=== PATIENT | male | born 1995 | race Caucasian/White ===

== ENCOUNTER 2017-03-04 13:47 | Inpatient (IN) | payer BC ==
[2017-03-04 14:37] LABS: Hematocrit 44 % (42-52); Hemoglobin 15.2 g/dl (14.0-18.0); Mean Corpuscular HGB Conc 35 g/dl (31-36); Mean Corpuscular Hemoglobin 31 pg (27-31); Mean Corpuscular Volume 88 fL (80-94); Mean Platelet Volume 9 um3 (7.4-10.4); Red Blood Count 4.98 10^6/ul (4.0-5.4); Red Cell Distribution Width 13 % (10.5-15); White Blood Count 5.5 10^3/ul (3.5-10.8)
[2017-03-04 14:51] LABS: ALT 13 U/L (7-52); AST 18 U/L (13-39); Albumin 4.9 g/dL (3.2-5.2); Alkaline Phosphatase 59 U/L (34-104); Anion Gap 9 mmol/L (2-11); Blood Urea Nitrogen 15 mg/dL (6-24); CO2 Carbon Dioxide 25 mmol/L (22-32); Calcium 9.6 mg/dL (8.6-10.3); Chloride 104 mmol/L (101-111); EGFR African American 123.8 (>60); EGFR Non-African American 96.3 (>60); Globulin 2.4 g/dL (2-4); Glucose 77 mg/dL (70-100); Sodium 138 mmol/L (133-145); Total Protein 7.3 g/dL (6.4-8.9)
[2017-03-04 15:09] LABS: Acetaminophen < 15 mcg/mL; Alcohol < 10 mg/dL (<10); Salicylate < 2.50 mg/dL (<30)
[2017-03-04 15:25] LABS: TSH (Thyroid Stimulating Horm) 1.76 mcIU/mL (0.34-5.60)
[2017-03-04 17:17] LABS: Benzodiazepine Urine Screen None Detected (None Detect)
--- NOTE | 2017-03-04 20:51 | ED ---
Edy Monroe Nilda, scribed for Prem Harper MD on 03/04/17 at 1412 . Psychiatric Complaint - HPI Summary HPI Summary: This patient is a 21 year old M BIBA to [facility] with a chief complaint of SI with a plan since last night. Patient had counseling today and counsellor recommended patient come to ED. Symptoms aggravated and alleviated by nothing. Patient reports insomnia and loss of appetite. PMHx of mental health issues ( anxiety and depression) for 6 years, uncontrolled. Patient has had SI before but never with a plan. - History Of Current Complaint Chief Complaint: EDMentalHealth Time Seen by Provider: 03/04/17 13:59 Hx Obtained From: Patient Onset/Duration: Sudden Onset, Gradual Onset, Still Present Character: Depressed, Anxious Aggravating Factor(s): Nothing Alleviating Factor(s): Nothing Associated Signs And Symptoms: Positive: Sleep Disturbance, Appetite Change Has Suicidal: Reports: Thoughts, With A Plan - Allergies/Home Medications Allergies/Adverse Reactions: Allergies Allergy/AdvReac Type Severity Reaction Status Date / Time No Known Allergies Allergy Verified 03/04/17 14:30 PMH/Surg Hx/FS Hx/Imm Hx Sensory History: Denies: Hx Legally Blind EENT History: Denies: Hx Deafness Psychiatric History: Reports: Hx Anxiety, Hx Depression Infectious Disease History: No Infectious Disease History: Denies: Traveled Outside the [place] in Last 30 Days - Family History Known Family History: Negative: Hypertension, Diabetes - Social History Alcohol Use: None Substance Use Type: Reports: None Smoking Status (MU): Never Smoked Tobacco Review of Systems Positive: Other - loss of appetite Positive: Anxious, Depressed, Other - SI with plan, insomnia All Other Systems Reviewed And Are Negative: Yes Physical Exam Triage Information Reviewed: Yes Vital Signs On Initial Exam: Initial Vitals Temp Pulse Resp BP Pulse Ox 98.5 F 72 18 126/72 99 03/04/17 13:50 03/04/17 13:50 03/04/17 13:50 03/04/17 13:50 03/04/17 13:50 Vital Signs Reviewed: Yes Appearance: Positive: Well-Appearing, No Pain Distress Skin: Positive: Warm, Skin Color Reflects Adequate Perfusion, Dry Head/Face: Positive: Normal Head/Face Inspection Eyes: Positive: Normal ENT: Positive: Normal ENT inspection Neck: Positive: Supple, Nontender Respiratory/Lung Sounds: Positive: Clear to Auscultation, Breath Sounds Present Cardiovascular: Positive: RRR Abdomen Description: Positive: Nontender, Soft Bowel Sounds: Positive: Present Musculoskeletal: Positive: Normal Neurological: Positive: Normal Psychiatric: Positive: Normal, Affect/Mood Appropriate - [place] Coma Scale Coma Scale Total: 15 Diagnostics - Vital Signs Vital Signs Temp Pulse Resp BP Pulse Ox 03/04/17 13:50 98.5 F 72 18 126/72 99 - Laboratory Lab Results: Lab Results 03/04/17 03/04/17 03/04/17 Range/Units 14:20 14:20 16:50 WBC 5.5 (3.5-10.8) 10^3/ul RBC 4.98 (4.0-5.4) 10^6/ul Hgb 15.2 (14.0-18.0) g/dl Hct 44 (42-52) % MCV 88 (80-94) fL MCH 31 (27-31) pg MCHC 35 (31-36) g/dl RDW 13 (10.5-15) % Plt Count 176 (150-450) 10^3/ul MPV 9 (7.4-10.4) um3 Neut % (Auto) 53.9 (38-83) % Lymph % (Auto) 36.9 (25-47) % [place] % (Auto) 7.3 (1-9) % Eos % (Auto) 1.0 (0-6) % Baso % (Auto) 0.9 (0-2) % Absolute Neuts (auto) 3.0 (1.5-7.7) 10^3/ul Absolute Lymphs (auto) 2.0 (1.0-4.8) 10^3/ul Absolute Monos (auto) 0.4 (0-0.8) 10^3/ul Absolute Eos (auto) 0.1 (0-0.6) 10^3/ul Absolute Basos (auto) 0.1 (0-0.2) 10^3/ul Absolute Nucleated RBC 0.01 10^3/ul Nucleated RBC % 0.1 Sodium 138 (133-145) mmol/L Potassium 4.0 (3.5-5.0) mmol/L Chloride 104 (101-111) mmol/L Carbon Dioxide 25 (22-32) mmol/L Anion Gap 9 (2-11) mmol/L BUN 15 (6-24) mg/dL Creatinine 1.00 (0.67-1.17) mg/dL Est GFR ( Amer) 123.8 (>60) Est GFR (Non-Af Amer) 96.3 (>60) BUN/Creatinine Ratio 15.0 (8-20) Glucose 77 (70-100) mg/dL Calcium 9.6 (8.6-10.3) mg/dL Total Bilirubin 1.20 H (0.2-1.0) mg/dL AST 18 (13-39) U/L ALT 13 (7-52) U/L Alkaline Phosphatase 59 (34-104) U/L Total Protein 7.3 (6.4-8.9) g/dL Albumin 4.9 (3.2-5.2) g/dL Globulin 2.4 (2-4) g/dL Albumin/Globulin Ratio 2.0 (1-3) TSH 1.76 (0.34-5.60) mcIU/mL Salicylates < 2.50 (<30) mg/dL Urine Opiates Screen None detected (None Detect) Acetaminophen < 15 mcg/mL Ur Barbiturates Screen None detected (None Detect) Ur Phencyclidine Scrn None detected (None Detect) Ur Amphetamines Screen None detected (None Detect) U Benzodiazepines Scrn None detected (None Detect) Urine Cocaine Screen None detected (None Detect) U Cannabinoids Screen None detected (None Detect) Serum Alcohol < 10 (<10) mg/dL Result Diagrams: 03/04/17 14:20 03/04/17 14:20 Lab Statement: Any lab studies that have been ordered have been reviewed, and results considered in the medical decision making process. Course/Dx - Course Course Of Treatment: Mr. Melvin presented with SI that he has had for a long time. Last night he began to formulate a plan and that has scared him. He was medically cleared and is awaiting a MHE. He endorses anhedonia, loss of appetite and insomnia. - Differential Dx/Clinical Impression Provider Diagnosis: Depression with suicidal ideation Discharge - Discharge Plan Condition: Stable Disposition: OTHER Discharge Disposition Comment: s/o pending shift change Referrals: No Primary Care Phys,NOPCP [Primary Care Provider] - The documentation as recorded by the Edy moreau Nilda accurately reflects the service I personally performed and the decisions made by me, Prem Harper MD.
--- NOTE | 2017-03-05 11:58 | HP ---
H&P (Free Text) History and Physical: HPI: ---- Patient is a 21yo male with PPHx significant for anxiety and depression which has gone untreated until now. Patient presents to the [facility] ED, [place], after reporting worsening anxiety and depression, now associated with SI and plan. Patient reports he'sn been dealing with depression and anxiety since . He has hx of suicide attempt which occurred in 08/2011. Patient reports stressor was bullying. He tried to hang himself. He was not hospitalized. Patient currently is a student at [employer] and is working 3 jobs to maintain his finances. Patient reports he is having trouble "adjusting to my new lifestyle". 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 Patient reports this job is distracting as there are issues daily with students. Patient reports his other 2 jobs are physically draining. Patient though reports his primary trigger which drops his mood is "lonliness". Patient reports he is the youngest of 2 children. He reports his older brother is mentally handicapped and requires most of his mother's attention. Patient reports he has felt "neglected" by his mom all his life. Patient reports poor sleep at 3-5 hrs per night recently. He reports being up with worries about school, finances, and "how I present myself". Patient reports poor energy, recent increase in apathy, decreased motivation, decreased interest in his classes, and patient endorses anhedonia. Patient reports he has had chronic fleeting SI since . He reports his recent planning prompted his presentation. Patient denies hx of alcohol abuse. Patient denies hx of use of illicit substances.Patient reports no hx of childhood physical abuse or sexual abuse. Patient reports hx of bullying from middle school through . Patient denies NMs. He reports no signs of psychosis nor were any elicited on exam. Past Psych Hx: Inpt - This is patient's first psychiatric hospitalization. Outpt - Patient reports only recent hx of counseling, weekly, on the [employer] campus Psychotropic med hx - Patient is psychotropic med naive. Trauma Hx: Patient reports no hx of childhood physical abuse or sexual abuse. Patient reports hx of bullying from middle school through . Suicide attempt Hx / SIB Hx: Patient reports hx of 1 suicide attempt which occurred in 08/2011. Patient reports stressor was bullying. He tried to hang himself. He was not hospitalized. Substance Hx: Patient denies hx of alcohol abuse. Patient denies hx of use of illicit substances. Medical Hx: None Allergies: --------- NKDA Social Hx: --------- -Born and raised in [place] -Raised by mom and step-dad, close with both -1 brother who is disabled, close -Patient is close with his bio-dad who lives in [place] -Patient is currently a sophomore in college -Lives in the dorms while in school, but at home with mom and step-dad when out -Patient is single, never , no children -Patient denies hx of legal problems -Patient reports he does have access to firearms as his step-dad has guns in his closet, unlocked Family Hx: -Patient reports hx of depression on maternal side of family. -Patient denies JACQUELYN issues in his family members. -Patient denies hx of attempted or completed suicide in his family. Home Medications: Home Medications Medication Instructions Recorded Confirmed Type NK [No Home Medications Reported] 03/04/17 03/04/17 History VITALS: Vital Signs (72 hours) 03/04/17 03/04/17 03/04/17 13:50 22:41 22:56 Temperature 98.5 F 98.1 F Pulse Rate 72 61 Respiratory 18 18 18 Rate Blood Pressure 126/72 134/85 (mmHg) O2 Sat by Pulse 99 99 Oximetry 03/05/17 03/05/17 08:04 11:18 Temperature 98.7 F Pulse Rate 71 Respiratory 16 16 Rate Blood Pressure 118/72 (mmHg) O2 Sat by Pulse 98 Oximetry LABS: ------- Laboratory Tests 03/04/17 03/04/17 03/04/17 14:20 14:20 16:50 WBC 5.5 RBC 4.98 Hgb 15.2 Hct 44 MCV 88 MCH 31 MCHC 35 RDW 13 Plt Count 176 MPV 9 Neut % (Auto) 53.9 Lymph % (Auto) 36.9 [place] % (Auto) 7.3 Eos % (Auto) 1.0 Baso % (Auto) 0.9 Absolute Neuts (auto) 3.0 Absolute Lymphs (auto) 2.0 Absolute Monos (auto) 0.4 Absolute Eos (auto) 0.1 Absolute Basos (auto) 0.1 Absolute Nucleated RBC 0.01 Nucleated RBC % 0.1 Sodium 138 Potassium 4.0 Chloride 104 Carbon Dioxide 25 Anion Gap 9 BUN 15 Creatinine 1.00 Est GFR ( Amer) 123.8 Est GFR (Non-Af Amer) 96.3 BUN/Creatinine Ratio 15.0 Glucose 77 Calcium 9.6 Total Bilirubin 1.20 H AST 18 ALT 13 Alkaline Phosphatase 59 Total Protein 7.3 Albumin 4.9 Globulin 2.4 Albumin/Globulin Ratio 2.0 TSH 1.76 Salicylates < 2.50 Urine Opiates Screen None detected Acetaminophen < 15 Ur Barbiturates Screen None detected Ur Phencyclidine Scrn None detected Ur Amphetamines Screen None detected U Benzodiazepines Scrn None detected Urine Cocaine Screen None detected U Cannabinoids Screen None detected Serum Alcohol < 10 PHYSICAL EXAM: GEN - thin build male, looks stated age, in NAD HEENT - NC/AT, EOEMI, no lesions or discharge noted, conjunctivae clear NECK - supple, no JVD, no LAD CARDIAC - S1/S2, no discernable murmurs ABD - (+) BS x 4 quad, non-tender EXT - no edema, no lesions MUSCULOSKEL - 5/5 muscle strength in all extremities SKIN - intact, no lesions NEURO - CN 2-12, steady gait MSE: ------ Appearance - thin build male, looks stated age, fair hygeine, in NAD Behavior - calm, cooperative, engaged Speech - spontaneous, RVR, prosody wnl Eye Contact - good Mood - "depressed" Affect - depressed TP - linear TC - consumed with anxieties Perception - no signs of psychosis noted Orientation - A&Ox4 Insight - fair Judgment - poor to fair Impulse control - fair Fund of knowledge - wnl SI / HI - SI w/plan on admission, currently denies both ASSESSMENT: 1. MDD, R, S w/o PFs PLAN: ------ 1. Continue admission to [facility] for safety and symptom mx. 2. Patient gives informed consent to start Effexor XR 75mg po qam for anxiety/ mood 3. Patient gives informed consent to start Trazodone 50mg po qhs for insomnia. 4. Patient gives informed consent to start Ativan 1mg po q6hrs PRN breakthrough anxiety. 5. Patient to participate in milieu activities and groups.
--- NOTE | 2017-03-05 16:42 | PN ---
MHU: Group Therapy Note - Service Type Service Type: [id number] Group Psychotherapy - Medication Education Group: Patient was attentive in group, and remained in good behavioral control. Although responsive to direct prompts to respond to questions, patient did not engage in spontaneous conversation.
[2017-03-05] MEDS: traZODone TAB* 50 MG TAB PO SCH (20:11)
[2017-03-06] MEDS: Venlafaxine EXT RELEASE CAP* 75 MG PO SCH (08:42)
[2017-03-06] MEDS ORDERED: Influenza VAC *QUAD* 2017-18* 0.5 ML SYRINGE IM ONE (09:00)
--- NOTE | 2017-03-06 10:26 | PN ---
Subjective - Subjective Service Type: 02143 Hosp care 15 min low complexity Subjective: Patient noted to be visible in the milieu, social with peers and staff, and participating in milieu activities and groups. Patient disclosed his concern about his mood which he reports drops unexpectedly. Patient reports noting triggers including perceived rejection, loneliness, and assuming malice when he does not understand a social cue or communication. Patient educated he must become more mindful of the situation in which these triggers occur. He has to look for evidence of malicious intent before assuming this otherwise he should give people benefit of the doubt. Patient informed due to his hx of perceived abandonment by his mother, patient may have developed a PD with cluster B traits. Handouts on BPD printed and given to patient. Patient reports improved mood and benefit from groups. Patient reports good sleep and appetite. He denies SI/HI and AH/VH. Objective - Appearance Appearance: Well Developed/Nourished, Thin Framed Dysmorphic Features: No Hygiene: Normal Grooming: Fairly Well Kept - Behavior Psychomotor Activities: Normal Exhibits Abnormal Movement: No - Attitude and Relatedness Attitude and Relatedness: Cooperative Eye Contact: Good - Speech Quality: Unpressured Latencies: Normal Quantity: Appropriate - Mood Patient's Decription of Mood: "Okay" - Affect Observed Affect: Depressed Affect Consistent with: Dysphoria - Thought Process Patient's Thought Process: Coherent Thought Content: No Passive Wish, No Suicidal Planning, No Homicidal Ideation, No Paranoid Ideation - Sensorium Experiencing Hallucinations: No, Sensorium is Clear Type of Hallucinations: Visual: No, Auditory: No, Command: No - Level of Consciousness Level of Consciousness: Alert Orientation: Yes Intact, Yes Orientated to Time, Yes Orientated to Place, Yes Orientated to Person - Impulse Control Impulse Control: Intact - Insight and Judgement Insight and Judgement: Fair - Group Participation Particating in Group Activities: Yes - Medication Management Medication Management Adherence: Yes Assessment - Assessment Merits Inpatient Hospitalization: For Immediate Safety, For Stabilization Inpatient DSM-IV Dx: ASSESSMENT: . 1. MDD, R, S w/o PFs. 2. r/o Unspecified PD(cluster B traits) Plan - Plan Treatment Plan: Name: OPAL COUCH Birthdate: 1995 [id number] PLAN: ------ 1. Continue admission to [facility] for safety and symptom mx. 2. Continue Effexor XR 75mg po qam for anxiety/mood 3. Continue Trazodone 50mg po qhs for insomnia. 4. Continue Ativan 1mg po q6hrs PRN breakthrough anxiety. 5. Refer to outpt services. 6. Re-eval on this regimen on Thursday. 7. Patient to participate in milieu activities and groups. Continued Medication Management: Start Medication Medications: Current Medications Lorazepam (Ativan Tab(*)) 1 mg PO Q6H PRN PRN Reason: ANXIETY Trazodone HCl (Desyrel Tab*) 50 mg PO BEDTIME [facility] Last Admin: 03/05/17 20:11 Dose: 50 mg Venlafaxine HCl (Effexor Xr Cap*) 75 mg PO DAILY [facility] Last Admin: 03/06/17 08:42 Dose: 75 mg - Discharge Plan Discharge Plan: Outpatient Follow Up
--- NOTE | 2017-03-06 11:58 | PN ---
MHU: Group Therapy Note - Service Type Service Type: [id number] Group Psychotherapy - Cognitive Behavioral Group Therapy ( CBT):Patient was attentive and participatory in CBT programming this morning, and remained in good behavioral control. Patient expressed positive insights regarding relevant treatment interventions and goals.
[2017-03-06] MEDS: traZODone TAB* 50 MG TAB PO SCH (21:02)
[2017-03-07] MEDS: Venlafaxine EXT RELEASE CAP* 75 MG PO SCH (08:22)
[2017-03-07] MEDS ORDERED: Influenza VAC *QUAD* 2017-18* 0.5 ML SYRINGE IM ONE (09:00)
[2017-03-07] MEDS: traZODone TAB* 50 MG TAB PO SCH (21:15)
[2017-03-08] MEDS: Venlafaxine EXT RELEASE CAP* 75 MG PO SCH (09:18)
[2017-03-08] MEDS: LORazepam TAB(*) 1 MG PO PRN (09:19)
--- NOTE | 2017-03-08 11:13 | PN ---
Subjective - Subjective Service Type: 80721 Hosp care 15 min low complexity Subjective: Opal states that he's feeling good, tolerating the introduction of venlafaxine XR well, and enjoying the milieu setting. He denies SI or HI and states that he should be ready for discharge home sometime this week. He is friendly and polite and, at one point, inquires to this clinician whether I think he has borderline personality disorder. The patient is educated on this diagnosis and advised to bring this question up with his attending, Dr. Arevalo, when that clinician returns after the weekend. He is adherent with group programming and no management issue per staff. Objective - Appearance Appearance: Well Developed/Nourished Dysmorphic Features: No Hygiene: Normal Grooming: Fairly Well Kept - Behavior Psychomotor Activities: Normal Exhibits Abnormal Movement: No - Attitude and Relatedness Attitude and Relatedness: Cooperative Eye Contact: Fair - Speech Quality: Unpressured Latencies: Normal Quantity: Appropriate - Mood Patient's Decription of Mood: "Good" - Affect Observed Affect: Fair Affect Consistent with: Euthymia - Thought Process Patient's Thought Process: Coherent Thought Content: No Passive Wish, No Suicidal Planning, No Homicidal Ideation, No Paranoid Ideation - Sensorium Experiencing Hallucinations: No, Sensorium is Clear Type of Hallucinations: Visual: No, Auditory: No, Command: No - Level of Consciousness Level of Consciousness: Alert Orientation: Yes Intact, Yes Orientated to Time, Yes Orientated to Place, Yes Orientated to Person - Impulse Control Impulse Control: Intact - Insight and Judgement Insight and Judgement: Good - Group Participation Particating in Group Activities: Yes - Medication Management Medication Management Adherence: Yes Assessment - Assessment Merits Inpatient Hospitalization: Consolidate Improvements, Pending Safe DC Plan Inpatient DSM-IV Dx: ASSESSMENT: . 1. MDD, R, S w/o PFs. 2. r/o Unspecified PD(cluster B traits) Clinical Impression: 21 y.o. single, white [employer] student with a history of untreated anxiety and depression arrives voluntarily seeking evaluation and treatment for active suicidal ideations. Plan - Plan Treatment Plan: Name: OPAL COUCH Birthdate: 1995 [id number] Patient is now on venlafaxine XR 75mg PO qam and trazodone 50mg PO qhs, which he claims to be tolerating well. Continue inpatient treatment. Continued Medication Management: Start Medication Medications: Current Medications Lorazepam (Ativan Tab(*)) 1 mg PO Q6H PRN PRN Reason: ANXIETY Last Admin: 03/08/17 09:19 Dose: 1 mg Trazodone HCl (Desyrel Tab*) 50 mg PO BEDTIME [facility] Last Admin: 03/07/17 21:15 Dose: 50 mg Venlafaxine HCl (Effexor Xr Cap*) 75 mg PO DAILY [facility] Last Admin: 03/08/17 09:18 Dose: 75 mg - Discharge Plan Discharge Plan: Inpatient Hospitalization
[2017-03-08] MEDS: traZODone TAB* 50 MG TAB PO SCH (21:06)
[2017-03-09] MEDS: LORazepam TAB(*) 1 MG PO PRN (09:03)
[2017-03-09] MEDS: Venlafaxine EXT RELEASE CAP* 75 MG PO SCH (09:03)
--- NOTE | 2017-03-09 11:55 | PN ---
Subjective - Subjective Service Type: 19807 Hosp care 15 min low complexity Subjective: Patient continue to thoroughly engage his therapy. He reports good benefit from groups and milieu activities. Patient again requests reading materials on his diagnosis of MDD and on the BPD. He reports seeing some of himself in prior reading materials. He reports improved mood. Appetite is wnl. He denies MILLIGAN, CP, Abd pain and denies issues with constipation or problems with urination. Patient reports increased sleep latency and requests increase in Trazodone dose. He also requests, from his reading, a trial on a mood stabilizer as he believes it may help in his abrupt drops in mood and irritability. He is med compliant and denies med s/e's. Patient informed Depakote would be started at low dose BID for mood stabilization. Patient again denies SI /HI and AH/VH. Objective - Appearance Appearance: Well Developed/Nourished, Thin Framed Dysmorphic Features: No Hygiene: Normal Grooming: Fairly Well Kept - Behavior Psychomotor Activities: Normal Exhibits Abnormal Movement: No - Attitude and Relatedness Attitude and Relatedness: Cooperative Eye Contact: Good - Speech Quality: Unpressured Latencies: Normal Quantity: Appropriate - Mood Patient's Decription of Mood: "Fine" - Affect Observed Affect: Fair Affect Consistent with: Euthymia - Thought Process Patient's Thought Process: Coherent Thought Content: No Passive Wish, No Suicidal Planning, No Homicidal Ideation, No Paranoid Ideation - Sensorium Experiencing Hallucinations: No, Sensorium is Clear Type of Hallucinations: Visual: No, Auditory: No, Command: No - Level of Consciousness Level of Consciousness: Alert Orientation: Yes Intact, Yes Orientated to Time, Yes Orientated to Place, Yes Orientated to Person - Impulse Control Impulse Control: Intact - Insight and Judgement Insight and Judgement: Fair - Group Participation Particating in Group Activities: Yes - Medication Management Medication Management Adherence: Yes Assessment - Assessment Merits Inpatient Hospitalization: For Immediate Safety, For Stabilization Inpatient DSM-IV Dx: ASSESSMENT: . 1. MDD, R, S w/o PFs. 2. r/o Unspecified PD(cluster B traits) Plan - Plan Treatment Plan: Name: OPAL COUCH Birthdate: 1995 [id number] PLAN: ------ 1. Continue admission to [facility] for safety and symptom mx. 2. Continue Effexor XR 75mg po qam for anxiety/mood 3. Will increase Trazodone from 50mg to 100mg po qhs for insomnia. 4. Patient gives informed consent to start Depakote 250mg po BID for mood augmentation/stabilization. 5. Continue Ativan 1mg po q6hrs PRN breakthrough anxiety. 6. Refer to outpt services. 7. Re-eval on this regimen on Thursday. 8. Patient to participate in milieu activities and groups. Continued Medication Management: Start Medication Medications: Current Medications Lorazepam (Ativan Tab(*)) 1 mg PO Q6H PRN PRN Reason: ANXIETY Last Admin: 03/09/17 09:03 Dose: 1 mg Trazodone HCl (Desyrel Tab*) 50 mg PO BEDTIME [facility] Last Admin: 03/08/17 21:06 Dose: 50 mg Venlafaxine HCl (Effexor Xr Cap*) 75 mg PO DAILY [facility] Last Admin: 03/09/17 09:03 Dose: 75 mg - Discharge Plan Discharge Plan: Outpatient Follow Up Outpatient Program: [facility]
[2017-03-09] MEDS: traZODone TAB* 50 MG TAB PO SCH (20:20)
[2017-03-09] MEDS: Divalproex ER TAB(*) 250 MG PO SCH (20:20)
[2017-03-10] MEDS: Venlafaxine EXT RELEASE CAP* 75 MG PO SCH (09:11)
[2017-03-10] MEDS: Divalproex ER TAB(*) 250 MG PO SCH ×2 (09:11→20:37)
[2017-03-10] MEDS: LORazepam TAB(*) 1 MG PO PRN (09:12)
--- NOTE | 2017-03-10 10:17 | PN ---
Subjective - Subjective Service Type: 78588 Hosp care 15 min low complexity Subjective: Patient continues to engage in therapy. He is noted to be visible on the milieu , social, pleasant and reports ongoing benefit from groups and milieu activities. Patient reports ongoing improved mood. Sleep and appetite are wnl. He is med compliant and denies med s/e's. He denies MILLIGAN, CP, Abd pain and denies issues with constipation or problems with urination. Patients improved sleep last night. He is full in affect, linear and GD in TP and future oriented in TC. Patient reports feeling ready for discharge. Patient again denies SI/HI and AH/VH. Objective - Appearance Appearance: Well Developed/Nourished, Thin Framed Dysmorphic Features: No Hygiene: Normal Grooming: Well Kept - Behavior Psychomotor Activities: Normal Exhibits Abnormal Movement: No - Attitude and Relatedness Attitude and Relatedness: Cooperative Eye Contact: Good - Speech Quality: Unpressured Latencies: Normal Quantity: Appropriate - Mood Patient's Decription of Mood: "Good" - Affect Observed Affect: Good Affect Consistent with: Euthymia - Thought Process Patient's Thought Process: Coherent Thought Content: No Passive Wish, No Suicidal Planning, No Homicidal Ideation, No Paranoid Ideation - Sensorium Experiencing Hallucinations: No, Sensorium is Clear Type of Hallucinations: Visual: No, Auditory: No, Command: No - Level of Consciousness Level of Consciousness: Alert Orientation: Yes Intact, Yes Orientated to Time, Yes Orientated to Place, Yes Orientated to Person - Impulse Control Impulse Control: Intact - Insight and Judgement Insight and Judgement: Fair - Group Participation Particating in Group Activities: Yes - Medication Management Medication Management Adherence: Yes Assessment - Assessment Merits Inpatient Hospitalization: For Immediate Safety, For Stabilization Inpatient DSM-IV Dx: ASSESSMENT: . 1. MDD, R, S w/o PFs. 2. r/o Unspecified PD(cluster B traits) Plan - Plan Treatment Plan: Name: OPAL COUCH Birthdate: 1995 [id number] PLAN: ------ 1. Continue admission to [facility] for safety and symptom mx. 2. Continue Effexor XR 75mg po qam for anxiety/mood 3. Will increase Trazodone from 50mg to 100mg po qhs for insomnia. 4. Continue Ativan 1mg po q6hrs PRN breakthrough anxiety. 5. Refer to outpt services. 6. Re-eval on this regimen on Thursday. 7. Patient to participate in milieu activities and groups. Continued Medication Management: Start Medication Medications: Current Medications Divalproex Sodium (Depakote Er Tab(*)) 250 mg PO BID [facility] Last Admin: 03/10/17 09:11 Dose: 250 mg Lorazepam (Ativan Tab(*)) 1 mg PO Q6H PRN PRN Reason: ANXIETY Last Admin: 03/10/17 09:12 Dose: 1 mg Trazodone HCl (Desyrel Tab*) 100 mg PO BEDTIME [facility] Last Admin: 03/09/17 20:20 Dose: 100 mg Venlafaxine HCl (Effexor Xr Cap*) 75 mg PO DAILY [facility] Last Admin: 03/10/17 09:11 Dose: 75 mg - Discharge Plan Discharge Plan: Outpatient Follow Up Outpatient Program: [facility]
[2017-03-10] MEDS: traZODone TAB* 50 MG TAB PO SCH (20:37)
[2017-03-11 07:56] VITALS: BP 114/69
[2017-03-11] MEDS: Divalproex ER TAB(*) 250 MG PO SCH (09:23)
[2017-03-11] MEDS: Venlafaxine EXT RELEASE CAP* 75 MG PO SCH (09:23)
[2017-03-11] MEDS: LORazepam TAB(*) 1 MG PO PRN (09:24)
--- NOTE | 2017-03-11 11:32 | DS ---
Subjective - Subjective Service Types: 49144 Hosp DC Day Mgmt simple under 30 min Subjective: Patient noted to be visible most of the day in the milieu, pleasant, social with peers and attending groups. Patient reports ongoing benefit from his admission. He reports interest in ongoing psychotherapy. Patient has been med compliant. Patient denies med s/e's. Patient reports feeling ready for discharge. Patient is A&Ox4, linear and GD in TP, and future oriented in TC. Patient reports interest in getting back to work and back to his classes. Patient again denies SI/HI and AH/VH. Patient is psychiatrically stable. Discharge plan has been discussed and patient is amenable and acknowledges understanding. Patient instructed to call the crisis hotline, 911, or self present to a local ED if SI recurs. Patient was amenable and acknowledged understanding of family and community supports. Patient will be discharged home today. Objective - Appearance Appearance: Well Developed/Nourished Dysmorphic Features: No Hygiene: Normal Grooming: Well Kept - Behavior Psychomotor Activities: Normal Exhibits Abnormal Movement: No - Attitude and Relatedness Attitude and Relatedness: Cooperative Eye Contact: Good - Speech Quality: Unpressured Latencies: Normal Quantity: Appropriate - Mood Patient's Decription of Mood: "Good" - Affect Observed Affect: Good Affect Consistent with: Euthymia - Thought Process Patient's Thought Process: Coherent Thought Content: No Passive Wish, No Suicidal Planning, No Homicidal Ideation, No Paranoid Ideation - Sensorium Experiencing Hallucinations: No, Sensorium is Clear Type of Hallucinations: Visual: No, Auditory: No, Command: No - Level of Consciousness Level of Consciousness: Alert Orientation: Yes Intact, Yes Orientated to Time, Yes Orientated to Place, Yes Orientated to Person - Impulse Control Impulse Control: Intact - Insight and Judgement Insight and Judgement: Good - Group Participation Particating in Group Activities: Yes - Medication Management Medication Management Adherence: Yes Treatment Course & Assessment Clinical Course & Impression: HOSPITAL COURSE: Patient is a 21yo male with PPHx significant for anxiety and depression which has gone untreated until now. Patient presented to the [facility] ED, BIBA, after reporting worsening anxiety and depression, now associated with SI and plan. Patient reports he'sn been dealing with depression and anxiety since HS. He has hx of suicide attempt which occurred in 08/2011. Patient reports stressor was bullying. He tried to hang himself. He was not hospitalized. Patient currently is a student at [employer] and is working 3 jobs to maintain his finances. Patient reports he is having trouble "adjusting to my new lifestyle". 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 Patient reports this job is distracting as there are issues daily with students. Patient reports his other 2 jobs are physically draining. Patient though reports his primary trigger which drops his mood is "lonliness". Patient reports he is the youngest of 2 children. He reports his older brother is mentally handicapped and requires most of his mother's attention. Patient reports he has felt "neglected" by his mom all his life. Patient reports poor sleep at 3-5 hrs per night recently. He reports being up with worries about school, finances, and "how I present myself". Patient reports poor energy, recent increase in apathy, decreased motivation, decreased interest in his classes, and patient endorses anhedonia. Patient reports he has had chronic fleeting SI since . He reports his recent planning prompted his presentation. Patient denies hx of alcohol abuse. Patient denies hx of use of illicit substances.Patient reports no hx of childhood physical abuse or sexual abuse. Patient reports hx of bullying from middle school through . Patient denies NMs. He reported no signs of psychosis nor were any elicited on admission exam. Patient gave informed consent to start Effexor XR 75mg po qam for anxiety/mood Patient gave informed consent to start Trazodone 50mg po qhs for insomnia. Patient gave informed consent to start Ativan 1mg po q6hrs PRN breakthrough anxiety. On admission day #1, patient noted to be visible in the milieu, social with peers and staff, and participating in milieu activities and groups. Patient disclosed his concern about his mood which he reports drops unexpectedly. Patient repored noting triggers including perceived rejection, loneliness, and assuming malice when he does not understand a social cue or communication. Patient educated he must become more mindful of the situation in which these triggers occur. He has to look for evidence of malicious intent before assuming this otherwise he should give people benefit of the doubt. Patient informed due to his hx of perceived abandonment by his mother, patient may have developed a PD with cluster B traits. Handouts on BPD printed and given to patient. Patient reports improved mood and benefit from groups. Patient reports good sleep and appetite. He denies SI/HI and AH/VH. By admission day #4, patient continue to thoroughly engage his therapy. He reported good benefit from groups and milieu activities. Patient again requested reading materials on his diagnosis of MDD and on the BPD. He reports seeing some of himself in prior reading materials. He reports improved mood. Appetite is wnl. He denied MILLIGAN, CP, Abd pain and denies issues with constipation or problems with urination. Patient reports increased sleep latency and requests increase in Trazodone dose. He also requests, from his reading, a trial on a mood stabilizer as he believes it may help in his abrupt drops in mood and irritability. He was med compliant and denies med s/e's. Patient informed Depakote would be started at low dose BID for mood stabilization. Patient again denies SI /HI and AH/VH. On admission day#5, Patient continues to engage in therapy. He is noted to be visible on the milieu, social, pleasant and reports ongoing benefit from groups and milieu activities. Patient reports ongoing improved mood. Sleep and appetite are wnl. He is med compliant and denies med s/e's. He denies MILLIGAN, CP, Abd pain and denies issues with constipation or problems with urination. Patients improved sleep last night on Trazodone 100mg, increased from 50mg po qhs for insomnia. He is full in affect, linear and GD in TP and future oriented in TC. Patient reported feeling ready for discharge. Patient again denied SI/HI and AH/VH. On day of discharge, admission day #6, patient noted to be visible most of the day in the milieu, pleasant, social with peers and attending groups. Patient reports ongoing benefit from his admission. He reports interest in ongoing psychotherapy. Patient has been med compliant. Patient denies med s/e's. Patient reports feeling ready for discharge. Patient is A&Ox4, linear and GD in TP, and future oriented in TC. Patient reports interest in getting back to work and back to his classes. Patient again denies SI/HI and AH/VH. Patient is psychiatrically stable. Discharge plan has been discussed and patient is amenable and acknowledges understanding. Patient instructed to call the crisis hotline, 911, or self present to a local ED if SI recurs. Patient was amenable and acknowledged understanding of family and community supports. Patient will be discharged home today. PERTINENT LABS: Laboratory Tests 03/04/17 03/04/17 03/04/17 14:20 14:20 16:50 WBC 5.5 RBC 4.98 Hgb 15.2 Hct 44 MCV 88 MCH 31 MCHC 35 RDW 13 Plt Count 176 MPV 9 Neut % (Auto) 53.9 Lymph % (Auto) 36.9 [place] % (Auto) 7.3 Eos % (Auto) 1.0 Baso % (Auto) 0.9 Absolute Neuts (auto) 3.0 Absolute Lymphs (auto) 2.0 Absolute Monos (auto) 0.4 Absolute Eos (auto) 0.1 Absolute Basos (auto) 0.1 Absolute Nucleated RBC 0.01 Nucleated RBC % 0.1 Sodium 138 Potassium 4.0 Chloride 104 Carbon Dioxide 25 Anion Gap 9 BUN 15 Creatinine 1.00 Est GFR ( Amer) 123.8 Est GFR (Non-Af Amer) 96.3 BUN/Creatinine Ratio 15.0 Glucose 77 Calcium 9.6 Total Bilirubin 1.20 H AST 18 ALT 13 Alkaline Phosphatase 59 Total Protein 7.3 Albumin 4.9 Globulin 2.4 Albumin/Globulin Ratio 2.0 TSH 1.76 Salicylates < 2.50 Urine Opiates Screen None detected Acetaminophen < 15 Ur Barbiturates Screen None detected Ur Phencyclidine Scrn None detected Ur Amphetamines Screen None detected U Benzodiazepines Scrn None detected Urine Cocaine Screen None detected U Cannabinoids Screen None detected Serum Alcohol < 10 Discharge Meds: Home Medications Medication Instructions Recorded Confirmed Type Divalproex ER TAB(*) [Depakote ER 250 mg PO BID #60 tab 03/11/17 Rx TAB(*)] Venlafaxine EXT RELEASE CAP* 75 mg PO DAILY #30 cap.sr 03/11/17 Rx [Effexor Xr CAP*] traZODone TAB* [Desyrel TAB*] 100 mg PO BEDTIME #60 tab 03/11/17 Rx Consultants: none Follow-Up: Appts for within the next 2 weeks scheduled by [facility] for MH(psychiatry and counseling). Clear for Discharge: Adequate Clinical Respons, Acceptable Safety Profile Inpatient DSM-IV Dx: ASSESSMENT: . 1. MDD, R, S w/o PFs. 2. r/o Unspecified PD(cluster B traits) Discharge Planning - Discharge Planning Discharge Plan: Outpatient Follow Up Outpatient Program: [facility] Recommendations for Continuing Care: Medication Management, Psychotherapy, Therapeutic Drug Levels Medications: Current Medications Divalproex Sodium (Depakote Er Tab(*)) 250 mg PO BID [facility] Last Admin: 03/11/17 09:23 Dose: 250 mg Lorazepam (Ativan Tab(*)) 1 mg PO Q6H PRN PRN Reason: ANXIETY Last Admin: 03/11/17 09:24 Dose: 1 mg Trazodone HCl (Desyrel Tab*) 100 mg PO BEDTIME [facility] Last Admin: 03/10/17 20:37 Dose: 100 mg Venlafaxine HCl (Effexor Xr Cap*) 75 mg PO DAILY [facility] Last Admin: 03/11/17 09:23 Dose: 75 mg Discharge Planning: Prescriptions provided for discharge [x] Yes [] No Follow up care details as per social work arrangements. Patient response to discharge plan: [] eager for discharge [x] agreeable with discharge plan [] ambivalent about discharge [] disagrees with discharge today
== END 2017-03-11 12:35 | disposition home or self-care (01) | DRG 751 ==
LOC: ED 13:47 → BSU 22:18
PROVIDERS: ADMIT Psychiatry & Neurology Psychiatry; ATTEND Psychiatry & Neurology Psychiatry
DX: F33.2 Major depressive disorder, recurrent severe without psychotic features (principal); R45.851 Suicidal ideations; Z81.8 Family history of other mental and behavioral disorders
CPT/HCPCS: 36415; 80053; 80307; 80320; 80329; 84443; 85025; 90686; 90853; 99222; 99231; 99238; A9270-GY; G0480

== ENCOUNTER 2017-04-03 22:21 | Inpatient (IN) | payer BC ==
[2017-04-03 23:17] LABS: Hematocrit 40 % (42-52); Hemoglobin 14.1 g/dl (14.0-18.0); Mean Corpuscular HGB Conc 35 g/dl (31-36); Mean Corpuscular Hemoglobin 31 pg (27-31); Mean Corpuscular Volume 88 fL (80-94); Mean Platelet Volume 9 um3 (7.4-10.4); Red Blood Count 4.52 10^6/ul (4.0-5.4); Red Cell Distribution Width 13 % (10.5-15); White Blood Count 6.4 10^3/ul (3.5-10.8)
[2017-04-03 23:20] LABS: Urine Bilirubin Negative (Negative); Urine Glucose 1+(50 mg/dL) (Negative); Urine Nitrite Negative (Negative)
[2017-04-03 23:32] LABS: ALT 8 U/L (7-52); AST 13 U/L (13-39); Albumin 4.5 g/dL (3.2-5.2); Alkaline Phosphatase 63 U/L (34-104); Anion Gap 5 mmol/L (2-11); BUN/Creatinine Ratio 14.4 (8-20); Blood Urea Nitrogen 13 mg/dL (6-24); CO2 Carbon Dioxide 28 mmol/L (22-32); Calcium 9.4 mg/dL (8.6-10.3); Chloride 106 mmol/L (101-111); EGFR African American 139.8 (>60); EGFR Non-African American 108.7 (>60); Globulin 1.9 g/dL (2-4); Glucose 108 mg/dL (70-100); Potassium 3.4 mmol/L (3.5-5.0); Sodium 139 mmol/L (133-145); Total Protein 6.4 g/dL (6.4-8.9)
[2017-04-03 23:37] LABS: Benzodiazepine Urine Screen None Detected (None Detect)
[2017-04-04 00:12] LABS: Acetaminophen < 15 mcg/mL; Alcohol < 10 mg/dL (<10); Salicylate < 2.50 mg/dL (<30)
[2017-04-04] MEDS ORDERED: traZODone TAB* 100 MG PO ONE (00:15)
[2017-04-04] MEDS ORDERED: Divalproex DR TAB(*) 250 MG PO ONE (00:16)
[2017-04-04 00:26] LABS: TSH (Thyroid Stimulating Horm) 2.17 mcIU/mL (0.34-5.60)
[2017-04-04] MEDS ORDERED: Nicotine Inhaler* 10 MG AMP INH PRN (03:41)
[2017-04-04] MEDS ORDERED: Nicotine GUM* 2 MG PO PRN (03:41)
[2017-04-04] MEDS ORDERED: Acetaminophen TAB* 325 MG PO PRN (03:41)
[2017-04-04] MEDS ORDERED: Al Hydrox/Mg Hydrox/Simet LIQ* 30 ML UDC PO PRN (03:41)
[2017-04-04] MEDS ORDERED: LORazepam TAB(*) 1 MG PO PRN (03:46)
[2017-04-04] MEDS ORDERED: Mouth Piece, Nicotine* 1 EACH CARTRIDGE INH ONE (04:00)
[2017-04-04] MEDS: Vitamin THERAPEUTIC TAB PO SCH (08:59)
[2017-04-04] MEDS ORDERED: Venlafaxine EXT RELEASE CAP* 75 MG PO SCH (09:00)
[2017-04-04] MEDS ORDERED: Divalproex ER TAB(*) 250 MG PO SCH (09:00)
[2017-04-04] MEDS: Divalproex ER TAB(*) 500 MG PO SCH (20:09)
[2017-04-04] MEDS: traZODone TAB* 100 MG PO SCH (20:09)
--- NOTE | 2017-04-04 21:50 | HP ---
HISTORY AND PHYSICAL: DATE OF ADMISSION: 04/04/17 IDENTIFYING DATA: Sharath is a 21-year-old male, a [employer] student who was brought to the emergency department by campus police after an episode of self- mutilation and this is his second psychiatric hospitalization within a month. 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 CHIEF COMPLAINT: "I kind of do it when I am lonely and stressful." HISTORY OF PRESENT ILLNESS: Sharath reports that he has been experiencing job- related stress which he cannot tolerate anymore and then his mood becomes extremely sad and the only way he can relieve the sadness and stress is by self- mutilation. He reports that after he does it, his stress goes away temporarily. 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 He finds himself being severely depressed with sadness, frequent crying episodes, anhedonia, helplessness, worthlessness, and constant suicidal ideations. There were times that he thought if he can commit suicide, others around him are going to be better off. However, at this time, he vehemently denies that he wanted to end his life, rather just wanted to get some relief. Before he cut himself, he called one of his lady friends and told her that he was going to cut himself and he was having this intrusive urge to do that. His friend called the campus police who came right after he has already cut himself on both his arms superficially. Now, he feels bad that he has done it and wants to get some help, that is why he volunteered to be admitted. PAST PSYCHIATRIC HISTORY: Significant for another hospitalization last month. He was discharged with a plan to see a psychiatrist and therapist at [facility] which he did not comply with the therapy at least. He has been taking his medications which includes Effexor 75 mg daily, Depakote 250 mg twice daily, and trazodone 100 mg at bedtime. PAST MEDICAL HISTORY: Unremarkable. ALLERGIES: NKDA. SUBSTANCE ABUSE HISTORY: Denies using any drugs or alcohol. TRAUMA HISTORY: Not anything significant although reports a history of bullying from middle through his high school. FAMILY HISTORY: Sharath reports that there are people in his maternal side of the family with depression. He denies any family history of either attempt or completed suicide. PERSONAL AND SOCIAL HISTORY: Sharath was born and raised in [place] [place], mostly raised by his mom and kate, both close to him. He has one brother with developmental disability. He is close to his brother. He is also close to his biological dad who lives in [place]. As mentioned earlier, he is a sophomore and [employer]. 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 He gets some financial support from his father. Rest of the expenses, he raises by working 3 jobs. He is single. No significant relationships. No children. PHYSICAL EXAMINATION GENERAL: The patient is a short statured, thin framed male, wearing paper gowns. He was found sleeping in bed at 4 p.m. prior to the physical examination. He was not in any physical distress at the time of physical exam. VITAL SIGNS: Include a blood pressure of 134/81, pulse 84, respirations 16, temperature 99.5 degrees Fahrenheit, pulse ox 97 on room air. LABS: CBC with DIFF, CMP, UA and TOX screen all unremarkable. HEENT: Head: Atraumatic, normocephalic. NECK: Supple, nontender with midline trachea. No enlarged lymph nodes or thyroid gland. CHEST: Equal air entry bilaterally. No added sounds. CARDIOVASCULAR: Normal heart sound with normal rate and rhythm. S1 and S2 audible only. No murmurs or gallops. ABDOMEN: Flat, soft, nontender without any organomegaly. Positive bowel sounds bilaterally in all quadrants. MUSCULOSKELETAL: Normal strength. Range of movement intact. Pulse palpable bilaterally in all extremities. NEUROLOGIC: Exam shows intact cranial nerves II through XII as well as intact sensory systems. SKIN: His skin is warm with bilateral superficial cuts on forearms. No active bleeding. There are some healed old scars as well. MENTAL STATUS EXAM: Sharath is a small statured, thin-framed male. He was asleep in bed prior to his mental status examination. He woke up easily, sat down on the bed, made intermittent eye contacts. He was alert and oriented to time, place, and person at the time of evaluation. Describes his mood as "okay" although his observed affect was restricted. Thought process is logical and goal-directed. Thought content was devoid of any delusions or any obsessions. He denied any active suicidal ideations or homicidal ideation. Intelligence appears to be average as evidenced by his education, vocabulary, and fund of knowledge. Memory functions were intact in all spheres. Insight and judgment appears to be limited. SUMMARY: This 21-year-old male, a [employer] sophomore, brought back to the emergency department by campus police for the second time in a month resulting in inpatient psychiatric hospitalization due to self-mutilating behavior with an intent to seriously harm self or end his life. He has been depressed and appears to be taking less than adequate dose of antidepressants and not going to his therapy sessions as recommended during his last discharge from here. DIAGNOSTIC IMPRESSION: MENTAL HEALTH DIAGNOSES: Major depressive disorder, recurrent, severe without psychotic features, rule out adjustment disorder with depressed mood, rule out borderline traits. PHYSICAL HEALTH DIAGNOSES: None. TREATMENT PLANS: Sharath should remain hospitalized for his safety and stabilization of acute depressive symptoms. His code status will be full. Supportive milieu, individual and group therapy will be initiated and he will be encouraged to attend. I will continue his outpatient medications and adjust the doses to a higher level and defer further adjustments to his assigned psychiatrist on the unit. He might need to be here through the weekend and couple of days after for further improvement of his mood and for his safety. [id number]/CPS #: [id number] MTDD
[2017-04-05] MEDS: Venlafaxine EXT RELEASE CAP* 37.5 MG PO SCH (08:28)
[2017-04-05] MEDS: Vitamin THERAPEUTIC TAB PO SCH (08:28)
[2017-04-05] MEDS: Divalproex ER TAB(*) 500 MG PO SCH ×2 (08:28→21:10)
[2017-04-05] MEDS ORDERED: diPHENhydraMINE PO* 25 MG PO ONE (13:00)
[2017-04-05] MEDS: traZODone TAB* 100 MG PO SCH (21:10)
[2017-04-06] MEDS: Divalproex ER TAB(*) 500 MG PO SCH ×2 (09:19→21:28)
[2017-04-06] MEDS: Vitamin THERAPEUTIC TAB PO SCH (09:19)
[2017-04-06] MEDS: Venlafaxine EXT RELEASE CAP* 37.5 MG PO SCH (09:19)
--- NOTE | 2017-04-06 10:09 | PN ---
Subjective - Subjective Service Type: 96357 Hosp care 15 min low complexity Subjective: Patient visible in the milieu, isolated, sitting alone. Patient is noted to be sad in affect and depressed in manner. He displays no PMR; speech and eye contact are wnl. Patient reports his episode of SIB(cutting both L&R forearms with a knife) was not a suicidal behavior. Patient stated, "I felt like I was burden to everyone"..."I felt like I was a bother"..."I felt like I was a pain". Patient then stated, "I'm going to punish myself". Patient reports his cutting occurred last Thursday night. When asked patient can't identify anyone who might think he's a bother or a pain. Patient reports he just felt that he was a burden on others. Patient reports the Thursday prior to his SIB, he had displayed aggressive and destructive behaviors at a meeting of [employer]. He reports the meeting deteriorated into guys yelling at each other. Patient reports he "freaked out". He reports being so angry that his co-workers handled these issues by yelling that it triggered his anger. He reports his mood diminished daily from there. He reports he continues to deal with the stress of alot of make up work still from his last admission. He reports though that he is in no danger of failing any classes or losing any of his jobs. Patient reports over the week he began to become lethargic all day, with no energy to get to classes. He reported apathy, increased feelings of helplessness and hopelessnes, and endorsed anhedonia. Patient reports sleep as been good. Patient reports his grades are passing but he is frustrated as he knows if he could concentrate better, he could make A's. Patient reports a friend had been noticing his dropping mood and had called him daily over the last week. He reports this friend called [place] police when he didnt answer her calls. Patient reports it is campus police who extracted him from his room where he sat cutting himself. Objective - Appearance Appearance: Well Developed/Nourished, Healthy Appearing Dysmorphic Features: No Hygiene: Mal-odorous Grooming: Disheveled - Behavior Psychomotor Activities: Normal Exhibits Abnormal Movement: No - Attitude and Relatedness Attitude and Relatedness: Cooperative Eye Contact: Fair - Speech Quality: Unpressured Latencies: Normal Quantity: Appropriate - Mood Patient's Decription of Mood: "depressed" - Affect Observed Affect: Constricted Affect Consistent with: Dysphoria - Thought Process Patient's Thought Process: Coherent Thought Content: No Passive Wish, No Suicidal Planning, No Homicidal Ideation, No Paranoid Ideation - Sensorium Experiencing Hallucinations: No, Sensorium is Clear Type of Hallucinations: Visual: No, Auditory: No, Command: No - Level of Consciousness Level of Consciousness: Alert Orientation: Yes Intact, Yes Orientated to Time, Yes Orientated to Place, Yes Orientated to Person - Impulse Control Impulse Control: Intact - Insight and Judgement Insight and Judgement: Good - Group Participation Particating in Group Activities: Yes - Medication Management Medication Management Adherence: Yes Assessment - Assessment Merits Inpatient Hospitalization: For Immediate Safety, For Stabilization Inpatient DSM-IV Dx: 1. MDD, R, S w/o PFs. 2. Unspecified PD(cluster B traits) Plan - Plan Treatment Plan: Name: OPAL COUCH Birthdate: 1995 [id number] PLAN: ------ 1. Continue [place] [facility] for safety and symptom mx. 2. Will D/C Effexor as patient has been med compliant for >1month with no noticeable change in neurovegetative symptoms. 3. Patient gives informed consent to start Wellbutrin SR 100mg po BID for neurovegetative symptoms of depression. 4. Continue Trazodone 100mg po qhs for insomnia. 5. Continue Ativan 1mg po q6hrs PRN breakthrough anxiety. 6. Re-eval on this regimen on Thursday. Tentative discharge scheduled for Thu as patient is traveling Wed night to his father's home. 7. Patient to participate in milieu activities and groups. Continued Medication Management: Different Medication Medications: Current Medications Acetaminophen (Tylenol Tab*) 650 mg PO Q4H PRN PRN Reason: PAIN or TEMP > 101 F Al Hydrox/Mg Hydrox/Simethicone (Maalox Plus*) 30 ml PO Q4H PRN PRN Reason: INDIGESTION Divalproex Sodium (Depakote Er Tab(*)) 500 mg PO BID [facility] Last Admin: 04/06/17 09:19 Dose: 500 mg Lorazepam (Ativan Tab(*)) 1 mg PO Q6H PRN PRN Reason: ANXIETY Multivitamins (Theragran Tab*) 1 tab PO DAILY [facility] Last Admin: 04/06/17 09:19 Dose: 1 tab Nicotine (Nicotine Inhaler*) 10 mg INH Q2H PRN PRN Reason: CRAVING Nicotine Polacrilex (Nicotine Gum*) 2 mg PO Q2H PRN PRN Reason: CRAVING Trazodone HCl (Desyrel Tab*) 100 mg PO BEDTIME [facility] Last Admin: 04/05/17 21:10 Dose: 100 mg Venlafaxine HCl (Effexor Xr Cap*) 112.5 mg PO DAILY [facility] Last Admin: 04/06/17 09:19 Dose: 112.5 mg - Discharge Plan Discharge Plan: Outpatient Follow Up Outpatient Program: [facility]
[2017-04-06] MEDS: buPROPion SR TAB.SR* 100 MG PO SCH (16:07)
[2017-04-06] MEDS: traZODone TAB* 100 MG PO SCH (21:28)
[2017-04-07] MEDS: Vitamin THERAPEUTIC TAB PO SCH (08:25)
[2017-04-07] MEDS: buPROPion SR TAB.SR* 100 MG PO SCH ×2 (08:25→15:06)
[2017-04-07] MEDS: Divalproex ER TAB(*) 500 MG PO SCH ×2 (08:25→21:17)
[2017-04-07] MEDS ORDERED: buPROPion SR TAB.SR* 150 MG PO ONE (15:01)
[2017-04-07] MEDS: Venlafaxine EXT RELEASE CAP* 37.5 MG PO SCH (15:03)
--- NOTE | 2017-04-07 15:28 | PN ---
Subjective - Subjective Service Type: 81508 Hosp care 25 min moderate complexity Subjective: Patient transferred to this documentation writer's service. Patient reports much improved mood and motivation. He endorses good insight in regards to events leading to admission. He states he has discussed recent hospitalizations with his father, who has been understanding and plans to have more contact with him. Opal reports his mother and stepfather try to be supportive but have little understanding about mental health issues. Opal is looking forward to being discharged tomorrow in order to be able to spend thanksgiving with his father in [place], near [facility]. He states he plans to continue pursuing an associate's degree and expects to graduate in april 2018. Patient is able to give documentation writer history of medications. He states that he was prescribed depakote in previous hospitalization for mood regulation and impulsive behaviors. This was increased during this admission. He states he had minimal noticable effect from month of venlafaxine and this was switched to buproprion yesterday. He states trazodone is helpful for sleep and he denies daytime sedation. Objective - Appearance Appearance: Well Developed/Nourished Dysmorphic Features: No Hygiene: Normal Grooming: Fairly Well Kept - Behavior Psychomotor Activities: Normal Exhibits Abnormal Movement: No - Attitude and Relatedness Attitude and Relatedness: Cooperative Eye Contact: Good - Speech Quality: Unpressured Latencies: Normal Quantity: Appropriate - Mood Patient's Decription of Mood: "Good" - Affect Observed Affect: Good Affect Consistent with: Euthymia - Thought Process Patient's Thought Process: Coherent, Goal Directed Thought Content: No Passive Wish, No Suicidal Planning, No Homicidal Ideation, No Paranoid Ideation - Sensorium Experiencing Hallucinations: No, Sensorium is Clear Type of Hallucinations: Visual: No, Auditory: No, Command: No - Level of Consciousness Level of Consciousness: Alert Orientation: Yes Intact, Yes Orientated to Time, Yes Orientated to Place, Yes Orientated to Person - Impulse Control Impulse Control: Tenuous - Insight and Judgement Insight and Judgement: Good - Group Participation Particating in Group Activities: No - Medication Management Medication Management Adherence: Yes Assessment - Assessment Merits Inpatient Hospitalization: For Immediate Safety, For Stabilization, Consolidate Improvements, For Discharge Planning Inpatient DSM-IV Dx: major depressive d/o, moderate, recurrent Clinical Impression: 21yo white male with major depressive d/o who presented to ED 3 1/2 weeks after discharge from first psychiatric hospitalization in February. He had difficulty following through with outpatient referrals due to transportation and limited support system. Plan - Plan Treatment Plan: Name: OPAL COUCH Birthdate: 1995 [id number] Continue acute intensive psychiatric treatment. Decrease to q30 min observation and allow computer privileges. Reinstate venlafaxine XR 37.5mg to provide taper. Increase wellbutrin to XL 300mg daily. Obtain repeat valproic acid level. Discharge plan tentative for 04/08/17 at noon. Continued Medication Management: Different Medication Medications: Current Medications Acetaminophen (Tylenol Tab*) 650 mg PO Q4H PRN PRN Reason: PAIN or TEMP > 101 F Al Hydrox/Mg Hydrox/Simethicone (Maalox Plus*) 30 ml PO Q4H PRN PRN Reason: INDIGESTION Bupropion HCl (Bupropion Xl*) 300 mg PO DAILY [facility] Divalproex Sodium (Depakote Er Tab(*)) 500 mg PO BID [facility] Last Admin: 04/07/17 08:25 Dose: 500 mg Lorazepam (Ativan Tab(*)) 1 mg PO Q6H PRN PRN Reason: ANXIETY Multivitamins (Theragran Tab*) 1 tab PO DAILY [facility] Last Admin: 04/07/17 08:25 Dose: 1 tab Nicotine (Nicotine Inhaler*) 10 mg INH Q2H PRN PRN Reason: CRAVING Nicotine Polacrilex (Nicotine Gum*) 2 mg PO Q2H PRN PRN Reason: CRAVING Trazodone HCl (Desyrel Tab*) 100 mg PO BEDTIME [facility] Last Admin: 04/06/17 21:28 Dose: 100 mg Venlafaxine HCl (Effexor Xr Cap*) 37.5 mg PO DAILY [facility] Last Admin: 04/07/17 15:03 Dose: 37.5 mg - Discharge Plan Discharge Plan: Outpatient Follow Up Outpatient Program: [facility]
[2017-04-07] MEDS: traZODone TAB* 100 MG PO SCH (21:17)
[2017-04-08 08:12] VITALS: BP 101/66
[2017-04-08] MEDS: Divalproex ER TAB(*) 500 MG PO SCH (08:18)
[2017-04-08] MEDS: Vitamin THERAPEUTIC TAB PO SCH (08:18)
[2017-04-08] MEDS: Venlafaxine EXT RELEASE CAP* 37.5 MG PO SCH (08:18)
[2017-04-08] MEDS ORDERED: BuPROPion XL* 300 MG TAB.XL PO SCH (09:00)
--- NOTE | 2017-04-09 00:23 | DS ---
CC: [facility]; [facility] * DISCHARGE SUMMARY: DATE OF ADMISSION: 04/04/17 DATE OF DISCHARGE: 04/08/17 SUPERVISING PSYCHIATRIST: Lauri Bower MD * (DICTATED BY LI DEE NP) DISCHARGE DIAGNOSIS: Major depressive disorder, recurrent, severe without psychotic features. CONDITION AT THE TIME OF DISCHARGE: Improved. The patient has been euthymic and with bright affect. He has been seclusive to self and intermittently participating in groups. Today, he was focused on finishing the [employer] instead of going to groups. He reports looking forward to spending time with family over the . He is motivated to return to [employer] [facility] and resume his academic studies. He has also decreased his responsibilities by letting go of one of his three part-time jobs. The patient's mother present at discharge and discussed aftercare planning, which includes obtaining a valproic acid level on 04/13/17. The patient was given written lab order to take to an outpatient lab and he and his mother states that they will be able to complete that that day. The patient was also encouraged to establish primary care provider and was given a followup appointment at [facility] in April. MENTAL STATUS EXAM: The patient is a small statured, thin framed white male. He is awake and euthymic with bright affect upon approach. Upon approach, he reports his mood is "good." His eye contact is good. He is alert and oriented x3. Thought process logical, goal directed. Thought content: The patient denies SI, HI or paranoid ideation. He denies any delusions. Alert and oriented x3. Speech is soft, articulate. Memory is 3/3. His insight is fair. His judgement is good. His fund of knowledge is adequate. DISCHARGE INSTRUCTIONS: A. Medications: 1. Bupropion XL 300 mg p.o. q.a.m. 2. Depakote ER 1000 mg p.o. q.h.s. 3. Trazodone 100 mg p.o. q.h.s. p.r.n. insomnia. The above were electronically prescribed to [facility] in [place] and the patient informed to notify this copywriter if he needs another refill before able to meet with the psychiatric or primary care provider before the end of 30-day supply. He is also instructed to dispose of old prescriptions and states understanding. B. Diet: Regular. C. Activity as tolerated. Tobacco cessation not applicable. The patient denies tobacco use. Studies pending at the time of discharge: Valproic acid level on 04/13/17. D. Followup care: The patient will follow up with [facility] and social work will notify him of the intake appointment time. He will follow up at [facility] for primary care and has a first appointment on , 05/07/17, at 9:40 a.m. E. Substance abuse followup: Not applicable. HOSPITAL COURSE: A. Reason for admission: The patient was brought to the emergency department by [place] police after an episode of self-mutilation. He was discharged from behavioral services unit approximately 1 month prior. He reported feeling overwhelmed and stressed due to scholastic and financial responsibilities. B. Psychiatric treatment rendered. The patient was admitted to the Adult Behavioral Services Unit on voluntary status. Code status was full and he was placed on 15-minute checks for safety. He was encouraged to participate in supportive milieu, individual sessions with staff and psychoeducational groups. He was primarily dysphoric, minimally interactive in comparison to his previous admission. The patient met with admitting psychiatrist and agreed to increase in Depakote, which was subtherapeutic and venlafaxine which is also low dose. The patient met with psychiatrist, , after first day of admission with whom he was familiar from previous admission. They discussed poor efficacy with venlafaxine and patient agreed to change to bupropion for depressive symptoms. He tolerated this change well. He reported improvement in mood and motivation. The patient denied side effects from transition. Upon meeting with this copywriter, he was given 2 small daily doses of venlafaxine to prevent withdrawal symptoms and bupropion was increased to 300 mg XL. The patient was decreased to 30-minute observation and allowed computer privileges and staff pass. He was safe on all checks. He reported looking forward to being discharged before the . The patient was given information and assistance on how to navigate bus schedule in order to be able to follow up with outpatient providers. He stated understanding of importance of prioritizing his mental health care. The patient completed an MMPI, which endorsed falsely elevated levels of depression and was given information about these results by psychologist, Dr. Demario Paul, please see his consultation note for full report. The patient's mother was present for discharge and agreeable to plan. He is going to go home with her and his step-dad. They are all driving to [facility] to meet with family and the patient will spend the weekend with his father in the [facility]. The patient reports improved relationship with his father and plans to spend more time together as he is a positive support for him. The patient reported that he had not been engaged in primary care and was agreeable to suggestions to secure a primary care provider. The patient reported readiness for discharge and denied suicidal ideation or urges for self-harm. He states understanding to call the [facility] for questions or concerns or to present to the nearest emergency department should symptoms worsen. It is our opinion this patient is appropriate for outpatient services and he will be an excellent candidate for therapy when he is able to engage on a consistent basis. LI DEE NP [id number]/CPS #: [id number] JAMAL
== END 2017-04-08 12:36 | disposition home or self-care (01) | DRG 751 ==
LOC: ED 22:21 → BSU 04-04 04:25
PROVIDERS: ADMIT Psychiatry & Neurology Psychiatry; ATTEND Psychiatry & Neurology Psychiatry
DX: F33.2 Major depressive disorder, recurrent severe without psychotic features (principal); F60.9 Personality disorder, unspecified; Z81.8 Family history of other mental and behavioral disorders
CPT/HCPCS: 36415; 80053; 80164; 80307; 80320; 80329; 81003; 84443; 85025; 99222; 99231; A9270-GY; G0480